=== PATIENT | male | born 1945 | race Caucasian/White ===

== ENCOUNTER → 2017-09-30 | Day surgery (SDC) | payer OTHER ==
[~2017-09-30] MED LIST: ACETAMINOPHEN 1000 MG/100 ML 100 ML IV ONE; LACTATED RINGER'S 1000 ML INJ 1,000 ML ONE; MIDAZOLAM HCL 2 MG/2 ML VIAL ONE; ONDANSETRON HCL 4 MG/2 ML VIAL IV PUSH ONE; PROPOFOL 200 MG/20 ML AMP IV ONE; ceFAZolin INJ 1,000 MG VIAL ONE
--- NOTE | 2017-09-30 11:43 | TN ---
cc: LAMONT JENNINGS M.D. DATE OF SURGERY: 09/30/2017 PREOPERATIVE DIAGNOSIS 1. Biopsy of basal cell carcinoma located in the glabella area. Procedure is a wide local excision resultant primary defect of 3 x 2, this required tissue arrangement, secondary defect of 4 x 4 centimeters. 2. Biopsy of basal cell carcinoma located in the left nasal dorsum/ala. The procedure is wide local excision resultant primary defect of 1 cm x 1 cm this required a bilobed flap reconstruction with secondary defect tissue rearrangement reconstruction 2 x 1 cm. 3. Biopsy of basal carcinoma located in the left shoulder, upper third, resultant defect of 2-1/2 x 1 -1/2 cm, this required an intermediate repair of 3 cm. 4. Destruction curettage of the lesions actinic keratosis located on the left forehead, total of three, 1 cm each. SURGEON Lamont Jennings MD ANESTHESIA LMA general plus total of 10 ccs of 1% lidocaine with epinephrine. ESTIMATED BLOOD LOSS Minimal. COMPLICATIONS None. PROCEDURE Proper consent was obtained. The patient was taken to the operating room. After achieving a level of LMA anesthesia local anesthetic was infiltrated and the area was prepped and draped utilizing Microcyn and sterile draping was applied. Attention was directed to the left shoulder, with a linear along the resting lines excision was carried out of this lesion including the tumor, the defect was 2-1/2 x 1-1/2 cm. It was properly undermined and meticulous hemostasis was taking place and closure was done with 3-0 Monocryl suture in dermis and subcu. Dermabond was applied thereafter. Thereafter, attention was directed to the three lesions in the forehead where they were about a centimeter each and I performed a destruction and curettage utilizing 15 blade, dermal planing the epidermis down to the papillary reticular dermis. Electrocautery was utilized for hemostasis. Again a total of three lesions 1 cm each located in the left forehead. Attention was directed to the left nasal dorsal/ala where excision was carried out of the 1 x 1 centimeter lesion including the lesion and I proceeded and performed the proper excision and sent to pathology again for permanent analysis. Bilobed flap reconstruction was elevated and inset for a secondary defect of 2 x 1 cm. Suture utilized was 5-0 Monocryl suture and 5-0 fast-absorbing gut. Finally attention was directed to the glabella area where this basal cell carcinoma was removed, including the lesion, the primary defect was 3 x 2 cm. This left a 4x4 cm secondary defect and I performed a tissue rearrangement reconstruction which was elevated, inset utilizing 5-0 Monocryl suture and 5-0 fast-absorbing gut. Overall, the patient tolerated the procedure well. Dermabond was applied to the incisions and antibiotic ointment to the destruction and curettage lesions 1 cm each on the left forehead. Absorbent dressing was applied. The patient tolerated the procedure well. He was awakened, extubated in the operating room and transferred back to postanesthesia care unit in stable condition. No complications were appreciated and the patient tolerated the procedure fairly well. MD ADRIAN Devine/TRI /11:19 AM /11:26 AM DON
== END | disposition home or self-care (01) ==
LOC: ESDC 08:35
PROVIDERS: ATTEND Plastic Surgery
DX: C44.319 Basal cell carcinoma of skin of other parts of face (principal); C44.311 Basal cell carcinoma of skin of nose; C44.619 Basal cell carcinoma of skin of left upper limb, including shoulder; L57.0 Actinic keratosis
CPT/HCPCS: 00300; 00400; 11604; 12032; 14041; 14060; 17000; 17003; 88305; J0131; J0690; J2250; J2405; J3010; J7120